=== PATIENT | female | born 1970 | race Caucasian/White ===

== ENCOUNTER 2017-12-10 20:59 | Emergency (ER) | payer OTHER ==
[2017-12-10] MEDS ORDERED: morphine CARPU-JECT 2 MG/1 ML DISP.SYRIN IVPUSH ONE (21:21)
[2017-12-10] MEDS ORDERED: morphine SULFATE 4 MG/ML VIAL ONE (21:21)
[2017-12-10] MEDS ORDERED: SODIUM CHLORIDE 1,000 ML IV STA (21:22)
[2017-12-10] MEDS ORDERED: LORazepam 2 MG/ML SDV VIAL ONE (21:24)
[2017-12-10 21:44] VITALS: BP 114/75; PULSE 102; TEMP 97.3; BMI 22.6
[2017-12-10 21:44] LABS: EOS % 2.3 % (0-4.5); HEMATOCRIT 40.4 % (32.4-45.2); HEMOGLOBIN 13.1 GM/dL (10.7-15.3); LYMPH % 26.7 % (8-40); MCH 25.3 pg (25.7-33.7); MCHC 32.5 g/dl (32.0-36.0); MEAN CELL VOLUME 77.9 fl (80-96); MEAN PLT VOLUME 10.2 fl (7.5-11.1); MONO % 6.3 % (3.8-10.2); NEUT % 63.7 % (42.8-82.8); PLATELET COUNT 182 K/MM3 (134-434); RDW 19.8 % (11.6-15.6); WHITE BLOOD COUNT 5.7 K/mm3 (4.0-10.0)
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
[2017-12-10 22:02] LABS: INR 0.93 (0.83-1.09)
[2017-12-10] MEDS ORDERED: KETOROLAC TROMETHAMINE 30 MG/1 ML VIAL IVPUSH ONE (23:11)
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
[2017-12-10] MEDS ORDERED: KETOROLAC TROMETHAMINE 30 MG/1 ML VIAL ONE (23:22)
== END 2017-12-11 01:04 | disposition home or self-care (01) ==
LOC: JER 20:59
PROC: 3E0337Z Introduction of Electrolytic and Water Balance Substance into Peripheral Vein, Percutaneous Approach (ICD-10-PCS; principal; 2017-12-10)
PROC: 3E033NZ Introduction of Analgesics, Hypnotics, Sedatives into Peripheral Vein, Percutaneous Approach (ICD-10-PCS; 2017-12-10)
PROC: 3E033NZ Introduction of Analgesics, Hypnotics, Sedatives into Peripheral Vein, Percutaneous Approach (ICD-10-PCS; 2017-12-10)
PROC: 3E0333Z Introduction of Anti-inflammatory into Peripheral Vein, Percutaneous Approach (ICD-10-PCS; 2017-12-10)
DX: M54.2 Cervicalgia (principal); M54.6 Pain in thoracic spine; M54.5 Low back pain; M79.604 Pain in right leg; R51 Headache; V43.52XA Car driver injured in collision with other type car in traffic accident, initial encounter; Y92.414 Local residential or business street as the place of occurrence of the external cause; Y93.89 Activity, other specified; Y99.8 Other external cause status
CPT/HCPCS: 36415; 70450-TC; 71101-TC-RT-FY; 72125-TC; 85025; 85610; 99283-25; J7030

== ENCOUNTER 2018-12-30 14:15 | Day surgery (SDC) | payer OTHER ==
[2018-12-30 15:10] VITALS: TEMP 99.1
[2018-12-30] MEDS ORDERED: FERRIC CARBOXYMALTOSE IVPB ONE (15:30)
[2018-12-30] MEDS ORDERED: SODIUM CHLORIDE IVPB ONE (15:30)
[2018-12-30] MEDS ORDERED: FERRIC CARBOXYMALTOSE 750 MG in SODIUM CHLORIDE 250 ML IVPB ONE (15:40)
[2018-12-30 16:59] VITALS: BP 128/68; PULSE 89
== END 2018-12-30 16:55 | disposition home or self-care (01) ==
LOC: JINFUSION 14:15
PROVIDERS: ATTEND Family Medicine
CPT/HCPCS: 84703; 96365; J1439

== ENCOUNTER 2019-01-06 07:50 | Day surgery (SDC) | payer OTHER ==
[2019-01-06] MEDS ORDERED: FERRIC CARBOXYMALTOSE 750 MG in SODIUM CHLORIDE 250 ML IVPB ONE (09:00)
[2019-01-06 09:38] VITALS: BP 127/81; PULSE 71
[2019-01-06 15:06] VITALS: TEMP 98.1
== END 2019-01-06 09:50 | disposition home or self-care (01) ==
LOC: JINFUSION 07:50
PROVIDERS: ATTEND Family Medicine
PROC: 3E033GC Introduction of Other Therapeutic Substance into Peripheral Vein, Percutaneous Approach (ICD-10-PCS; principal; 2019-01-06)
DX: D64.9 Anemia, unspecified (principal)
CPT/HCPCS: 81025; 96365; J1439

== ENCOUNTER 2021-09-12 18:00 | Emergency (ER) | payer OTHER ==
[2021-09-12] MEDS ORDERED: KETOROLAC TROMETHAMINE 30 MG/1 ML VIAL IM ONE (18:47)
[2021-09-12] MEDS ORDERED: KETOROLAC TROMETHAMINE 30 MG/1 ML VIAL ONE (18:49)
[2021-09-12 20:46] VITALS: BP 126/80; PULSE 82; TEMP 98.7; BMI 22.4
== END 2021-09-12 21:22 | disposition home or self-care (01) ==
LOC: FER 18:00
PROC: 3E0233Z Introduction of Anti-inflammatory into Muscle, Percutaneous Approach (ICD-10-PCS; principal; 2021-09-12)
DX: M54.9 Dorsalgia, unspecified (principal)
CPT/HCPCS: 72125-TC; 72128-TC; 72131-TC; 99284-25

== ENCOUNTER 2022-03-08 06:42 | Emergency (ER) | payer OTHER ==
[2022-03-08 06:58] VITALS: BMI 23.4
[2022-03-08] MEDS ORDERED: ACETAMINOPHEN 500 MG TABLET (FP) PO ONE (07:22)
[2022-03-08] MEDS ORDERED: METOCLOPRAMIDE HCL 10 MG TABLET (FP) PO ONE ×2 (07:22→07:30)
[2022-03-08] MEDS ORDERED: KETOROLAC TROMETHAMINE 30 MG/1 ML VIAL IM ONE (07:27)
[2022-03-08] MEDS ORDERED: KETOROLAC TROMETHAMINE 30 MG/1 ML VIAL ONE (07:31)
[2022-03-08] MEDS ORDERED: ACETAMINOPHEN 500 MG TABLET (FP) ONE (07:31)
[2022-03-08 08:22] LABS: ALBUMIN 4.1 g/dl (3.4-5.0); BILIRUBIN,TOTAL 0.8 mg/dl (0.2-1); CALCIUM 9.8 mg/dl (8.5-10); CREATININE 0.5 mg/dl (0.55-1.3); TOT PROT 7.1 g/dl (6.4-8.2)
[2022-03-08 08:30] LABS: HEMATOCRIT 45.3 % (32.4-45.2); HEMOGLOBIN 14.8 G/dL (10.7-15.3); MCH 27.8 pg (25.7-33.7); MCHC 32.7 g/dl (32.0-36.0); MEAN CELL VOLUME 84.9 fl (80-96); MEAN PLT VOLUME 10.3 fl (7.5-11.1); PLATELET COUNT 205.2 10^3/uL (134-434); RBC 5.33 10^6/uL (3.60-5.2); RDW 15.6 % (11.6-15.6); WHITE BLOOD COUNT 10.8 10^3/uL (4.0-10.8)
[2022-03-08 09:40] VITALS: BP 141/94; PULSE 72; RESP 16; TEMP 98.2
[2022-03-08 10:23] LABS: PLATELET ESTIMATE ADEQUATE
== END 2022-03-08 09:54 | disposition home or self-care (01) ==
LOC: FER 06:42
PROC: 3E023GC Introduction of Other Therapeutic Substance into Muscle, Percutaneous Approach (ICD-10-PCS; principal; 2022-03-08)
DX: R51.9 Headache, unspecified (principal)
CPT/HCPCS: 36415; 80053; 84443; 85027; 99284-25

== ENCOUNTER 2022-03-26 17:07 | Emergency (ER) | payer OTHER ==
[2022-03-26 17:35] VITALS: BP 137/84; PULSE 97; RESP 16; TEMP 98.7; BMI 23.0
[2022-03-26 18:09] LABS: HEMATOCRIT 43.2 % (32.4-45.2); HEMOGLOBIN 14.6 G/dL (10.7-15.3); MCH 28.2 pg (25.7-33.7); MCHC 33.7 g/dl (32.0-36.0); MEAN CELL VOLUME 83.7 fl (80-96); MEAN PLT VOLUME 9.2 fl (7.5-11.1); PLATELET COUNT 244.7 10^3/uL (134-434); RBC 5.16 10^6/uL (3.60-5.2); RDW 15.4 % (11.6-15.6); WHITE BLOOD COUNT 7.4 10^3/uL (4.0-10.8)
[2022-03-26 18:31] LABS: ALBUMIN 4.1 g/dl (3.4-5.0); BILIRUBIN,TOTAL 0.5 mg/dl (0.2-1); CALCIUM 9.7 mg/dl (8.5-10); CREATININE 0.5 mg/dl (0.55-1.3); TOT PROT 7.7 g/dl (6.4-8.2)
[2022-03-26 18:56] LABS: PLATELET ESTIMATE ADEQUATE
== END 2022-03-26 18:43 | disposition home or self-care (01) ==
LOC: FER 17:07
DX: K62.5 Hemorrhage of anus and rectum (principal)
CPT/HCPCS: 36415; 80053; 85027; 99283-25